=== PATIENT | male | born 1950 | race American Indian/Alaskan Native ===

== ENCOUNTER 2020-11-29 16:54 | Emergency (ER) | payer MEDICARE ==
--- NOTE | 2020-11-29 17:09 | Emergency Department Report ---
ED Neuro Deficit HPI - General Chief Complaint: Neuro Symptoms/Deficit Stated Complaint: CODE STROKE Time Seen by Provider: 11/29/20 16:55 - History of Present Illness Initial Comments: Patient is 70 years old male with history of CVA with right side residual weakness and history of hypertension. Patient brought to the emergency room via EMS from home for evaluation of stroke. EMS stated that patient last time was seen around 11:00 by his at his baseline. She stated that when she returned back she found him unable to use his right upper and lower extremity and significant right facial droop. Upon arrival to the ER patient is alert however he is altered and unable to answer questions appropriately. Patient with significant upper and lower extremity weakness on the right side and right facial droop. Patient im mediately moved to CT for stat CT brain without contrast. Stroke teleneurologist contacted and I spoke with Dr. Jeane Cummings. -: Sudden, This morning, unknown Location: right face, right arm, right leg Presenting Symptoms: Present: Weak/Paralyzed One Side, Facial Droop/Numbness History of same: Yes Place: home Severity: moderate Quality: weak Context: sudden onset - Related Data Home Medications: Home Medications Medication Instructions Recorded Confirmed Last Taken No Known Home Medications [No 11/29/20 11/29/20 Unknown Reported Home Medications] Allergies/Adverse Reactions: Allergies Allergy/AdvReac Type Severity Reaction Status Date / Time No Known Allergies Allergy Unverified 11/29/20 17:29 ED Review of Systems ROS: Stated complaint: CODE STROKE Other details as noted in HPI Comment: All other systems reviewed and negative Constitutional: denies: chills, fever Respiratory: denies: cough, shortness of breath, SOB with exertion, SOB at rest Cardiovascular: denies: chest pain, palpitations, dyspnea on exertion Gastrointestinal: denies: abdominal pain, nausea, vomiting Musculoskeletal: denies: back pain Neurological: weakness. denies: headache, numbness, paresthesias, confusion, abnormal gait ED Past Medical Hx - Medications Home Medications: Home Medications Medication Instructions Recorded Confirmed Last Taken Type No Known Home Medications [No 11/29/20 11/29/20 Unknown History Reported Home Medications] ED Neuro Physical Exam - General General appearance: alert, in no apparent distress Suspected Stroke: Yes - Head Head exam: Present: atraumatic, normocephalic, normal inspection - Eye Eye exam: Present: normal appearance, PERRL - ENT ENT exam: Present: normal exam, normal orophraynx, mucous membranes moist - Neck Neck exam: Present: normal inspection, full ROM. Absent: tenderness, meningismus - Respiratory Respiratory exam: Present: normal lung sounds bilaterally - Cardiovascular Cardiovascular Exam: Present: regular rate, normal rhythm, normal heart sounds - GI/Abdominal GI/Abdominal exam: Present: soft, normal bowel sounds. Absent: distended, tenderness, guarding, rebound, rigid, mass, bruit, pulsatile mass, hernia - Back Exam Back exam: Present: normal inspection, full ROM. Absent: CVA tenderness (R), CVA tenderness (L) - Neurological Exam Neurological exam: Present: alert, altered. Absent: CN II-XII intact - NIHSS Assessment Interval: Baseline 1a. Level of Consciousness: alert/keenly responsive 1b. LOC Questions: answers 1 question correctly 1c. LOC Commands: performs 1 task correctly 2. Best Gaze: forced deviation 3. Visual: partial hemianopia 4. Facial Palsy: unilateral complete paralysis 5b. Motor Arm Right: drift 5a. Motor Arm Left: no drift 6a. Motor Leg Left: no drift 6b. Motor Leg Right: drift 7. Limb Ataxia: absent 8. Sensory: mild/moderate sensory loss 9. Best Language: mild/moderate aphasia 10. Dysarthria: mild/moderate dysarthria 11. Extinction/Inattention: no abnormality Total Score: 13 Stroke Severity: Moderate Stroke - Psychiatric Psychiatric exam: Present: normal mood - Skin Skin exam: Present: warm, intact, normal color ED Course Vital Signs 11/29/20 11/29/20 11/29/20 17:15 17:21 17:23 Temperature 98.2 F 98.2 F Pulse Rate 97 H 93 H Respiratory 13 19 18 Rate Blood Pressure 184/111 Blood Pressure 193/105 [Right] O2 Sat by Pulse 98 97 Oximetry 11/29/20 17:45 Temperature Pulse Rate 93 H Respiratory 22 Rate Blood Pressure 185/108 Blood Pressure [Right] O2 Sat by Pulse 97 Oximetry - Consultations Consultation #1: 11/29/20 18:06 I discussed the patient with Dr. Parry, At [facility] stroke center. He stated that he will review the images and will call me back. - Lab Data Result diagrams: 11/29/20 17:20 05/08/21 17:20 Lab Results 11/29/20 11/29/20 11/29/20 Range/Units 17:20 17:20 17:20 WBC 5.2 (4.5-11.0) K/mm3 RBC 4.63 (3.65-5.03) M/mm3 Hgb 11.5 L (11.8-15.2) gm/dl Hct 36.6 (35.5-45.6) % MCV 79 L (84-94) fl MCH 25 L (28-32) pg MCHC 32 (32-34) % RDW 15.9 H (13.2-15.2) % Plt Count 212 (140-440) K/mm3 Lymph % (Auto) 34.7 (13.4-35.0) % [place] % (Auto) 10.4 H (0.0-7.3) % Eos % (Auto) 2.6 (0.0-4.3) % Baso % (Auto) 1.0 (0.0-1.8) % Lymph # (Auto) 1.8 (1.2-5.4) K/mm3 [place] # (Auto) 0.5 (0.0-0.8) K/mm3 Eos # (Auto) 0.1 (0.0-0.4) K/mm3 Baso # (Auto) 0.1 (0.0-0.1) K/mm3 Seg Neutrophils % 51.3 (40.0-70.0) % Seg Neutrophils # 2.6 (1.8-7.7) K/mm3 PT 13.6 (12.2-14.9) Sec. INR 1.06 (0.87-1.13) APTT 25.2 (24.2-36.6) Sec. Thrombin Time 17.7 (15.1-19.6) Sec. Sodium 134 L (137-145) mmol/L Potassium 3.7 (3.6-5.0) mmol/L Chloride 97.7 L (98-107) mmol/L Carbon Dioxide 26 (22-30) mmol/L Anion Gap 14 mmol/L BUN 8 L (9-20) mg/dL Creatinine 0.7 L (0.8-1.3) mg/dL Estimated GFR > 60 ml/min BUN/Creatinine Ratio 11 % Glucose 268 H (75-100) mg/dL Calcium 8.9 (8.4-10.2) mg/dL Total Bilirubin (0.1-1.2) mg/dL Direct Bilirubin (0-0.2) mg/dL Indirect Bilirubin mg/dL AST (5-40) units/L ALT (7-56) units/L Alkaline Phosphatase (35-129) units/L Total Creatine Kinase 85 (55-170) units/L CK-MB (CK-2) 1.4 (0.0-4.0) ng/mL CK-MB (CK-2) Rel Index 1.6 (0-4) Troponin T < 0.010 (0.00-0.029) ng/mL Total Protein (6.3-8.2) g/dL Albumin (3.9-5) g/dL Albumin/Globulin Ratio % /03/14 Range/Units 17:20 WBC (4.5-11.0) K/mm3 RBC (3.65-5.03) M/mm3 Hgb (11.8-15.2) gm/dl Hct (35.5-45.6) % MCV (84-94) fl MCH (28-32) pg MCHC (32-34) % RDW (13.2-15.2) % Plt Count (140-440) K/mm3 Lymph % (Auto) (13.4-35.0) % [place] % (Auto) (0.0-7.3) % Eos % (Auto) (0.0-4.3) % Baso % (Auto) (0.0-1.8) % Lymph # (Auto) (1.2-5.4) K/mm3 [place] # (Auto) (0.0-0.8) K/mm3 Eos # (Auto) (0.0-0.4) K/mm3 Baso # (Auto) (0.0-0.1) K/mm3 Seg Neutrophils % (40.0-70.0) % Seg Neutrophils # (1.8-7.7) K/mm3 PT (12.2-14.9) Sec. INR (0.87-1.13) APTT (24.2-36.6) Sec. Thrombin Time (15.1-19.6) Sec. Sodium (137-145) mmol/L Potassium (3.6-5.0) mmol/L Chloride (98-107) mmol/L Carbon Dioxide (22-30) mmol/L Anion Gap mmol/L BUN (9-20) mg/dL Creatinine (0.8-1.3) mg/dL Estimated GFR ml/min BUN/Creatinine Ratio % Glucose (75-100) mg/dL Calcium (8.4-10.2) mg/dL Total Bilirubin 0.20 (0.1-1.2) mg/dL Direct Bilirubin < 0.2 (0-0.2) mg/dL Indirect Bilirubin 0.0 mg/dL AST 12 (5-40) units/L ALT 9 (7-56) units/L Alkaline Phosphatase 82 (35-129) units/L Total Creatine Kinase (55-170) units/L CK-MB (CK-2) (0.0-4.0) ng/mL CK-MB (CK-2) Rel Index (0-4) Troponin T (0.00-0.029) ng/mL Total Protein 7.6 (6.3-8.2) g/dL Albumin 3.9 (3.9-5) g/dL Albumin/Globulin Ratio 1.1 % - EKG Data -: EKG Interpreted by Me EKG shows normal: sinus rhythm Rate: normal Interpretation: no acute changes - Radiology Data Radiology results: report reviewed - Medical Decision Making Patient is 70 years old male with history of CVA with right side residual weakness and history of hypertension. Patient brought to the emergency room via EMS from home for evaluation of stroke. EMS stated that patient last time was seen around 11:00 by his at his baseline. She stated that when she returned back she found him unable to use his right upper and lower extremity and significant right facial droop. Upon arrival to the ER patient is alert however he is altered and unable to answer questions appropriately. Patient with significant upper and lower extremity weakness on the right side and right facial droop. Patient immediate ly moved to CT for stat CT brain without contrast. Stroke teleneurologist contacted and I spoke with Dr. Jeane Cummings. Head CTA showed left M1 occlusion. I discussed the patient with Dr. Parry, interventional neurologist at [facility]. He accepted the patient to be transfer for emergency thrombectomy. I discussed the patient with his Florina and informed that patient will be transferred to [place] for further management. Critical Care Time: Yes Critical care time in (mins) excluding proc time.: 45 Critical care attestation.: If time is entered above; I have spent that time in minutes in the direct care of this critically ill patient, excluding procedure time. ED Disposition Clinical Impression: Acute CVA (cerebrovascular accident) Disposition: [id number]/TX-[id number] ANOTHER TYPE HLTHCARE Is pt being admited?: No Condition: Stable Referrals: PRIMARY CARE, [Primary Care Provider] - 3-5 Days
[2020-11-29 17:30] LABS: Basophils # (Auto) 0.1 K/mm3 (0.0-0.1); Eosinophils # (Auto) 0.1 K/mm3 (0.0-0.4); Eosinophils % (Auto) 2.6 % (0.0-4.3); Hematocrit 36.6 % (35.5-45.6); Hemoglobin 11.5 gm/dl (11.8-15.2); Lymphocytes # (Auto) 1.8 K/mm3 (1.2-5.4); Lymphocytes % (Auto) 34.7 % (13.4-35.0); Mean Corpuscular HGB Conc 32 % (32-34); Mean Corpuscular Volume 79 fl (84-94); Monocytes # (Auto) 0.5 K/mm3 (0.0-0.8); Monocytes % (Auto) 10.4 % (0.0-7.3); Platelet Count 212 K/mm3 (140-440); Red Blood Count 4.63 M/mm3 (3.65-5.03); Red Cell Distribution Width 15.9 % (13.2-15.2)
--- NOTE | 2020-11-29 17:31 | Cat Scan Report ---
CT head/brain wo con INDICATION / CLINICAL INFORMATION: 70 years Male; Stroke symptoms. TECHNIQUE: Routine CT head without contrast. All CT scans at this location are performed using CT dos e reduction for ALARA by means of automated exposure control. COMPARISON: None. FINDINGS: BRAIN / INTRACRANIAL CONTENTS: There is extensive cerebral white matter disease most consistent with microvascular angiopathy. There are multiple old infarcts involving basal ganglia and gloria radiata as well as the right cerebellum. There also appears to be old lacunar infarct involving anterior left amilcar. There is mild cerebral atrophy. The ventricular system is correspondingly appropriate in size and con figuration. There is no gross CT evidence of acute intracranial hemorrhage or significant mass effect . ORBITS: No significant abnormality of visualized orbits. SINUSES / MASTOIDS: No significant abnormality in the visualized paranasal sinuses or mastoid air dorian ls. CRANIOCERVICAL JUNCTION: No significant abnormality. ADDITIONAL FINDINGS: The increased signal projected within the intracranial vessels appears fairly sy mmetric and likely are reflect atherosclerotic disease at. However, the findings extend more laterall y within the left MCA and correlation be needed given the unspecified symptoms. IMPRESSION: 1. There is extensive microvascular angiopathy as detailed above without clear CT evidence of acute i ntracranial hemorrhage. The study was specified as code stroke and called emergently to Dr. Graham in the ER at 4:25 PM Nadeen [facility] standard time. Signer Name: Ayden Reddy MD Signed: 11/29/2020 5:27 PM Workstation Name: [id number]
--- NOTE | 2020-11-29 17:37 | Emergency Department Report ---
Blank Doc - Documentation Documentation: [facility] Consult Note # Demographics Consult Type: Acute Stroke Level 2 (4.5-24 hrs) Patient Location: Emergency Room First Name: Chris Last Name: Tavon Date of : 1950 Age: 70 Gender: Male Time of Initial Page (): 11/29/2020, 16:55 Time of Return Call (): 11/29/2020, 16:55 # HPI History: 70yo M presented after being normal at 1100, found later with severe right sided weakness Context/Pre-existing conditions: pre-existing motor deficit, right # Scores Level of Consciousness 1a: [0] = Alert; keenly responsive LOC Questions 1b: [2] = Answers neither correctly LOC Commands 1c: [0] = Performs both tasks correctly Best Gaze 2: [2] = Forced deviation Visual 3: [0] = No visual loss Facial Palsy 4: [2] = Partial paralysis Motor Arm Left 5a: [0] = No drift Motor Arm Right 5b: [1] = Drift Motor Leg Left 6a: [0] = No drift Motor Leg Right 6b: [3] = No effort against gravity Limb Ataxia 7: [0] = Absent Sensory 8: [0] = Normal Best Language 9: [2] = Severe aphasia Dysarthria 10: [1] = [id number] dysarthria Extinction and Inattention 11: [0] = No abnormality NIHSS Total: 13 # PMH-FH-SH Past Medical History: stroke # Data Time Head CT personally read by me (): 11/29/2020, 17:[address]: no bleed, preliminarily reviewed by me, please refer to radiology read for official reading CTA Head: MCA occlusion, preliminarily reviewed by me, please refer to radiology read for official reading, left M1 # Assessment Impression: Ischemic Stroke (Acute) # Plan Thrombolytic/Intervention: IA Intervention Thrombolytic Exclusion: > 4.5 hours Thrombolytic Administration Recommendations: Transfer to facility that is IA capable for consideration of mechanical thrombectomy Other: I have discussed my recommendations with the referring provider Disposition: transfer to IA capable facility # Logistics Telemedicine: Interactive 2 way audio and visual telecommunication technology was utilized during this visit
[2020-11-29 17:43] LABS: INR 1.06 (0.87-1.13)
[2020-11-29 17:44] LABS: Partial Thromboplastin Time 25.2 Sec. (24.2-36.6); Thrombin Time 17.7 Sec. (15.1-19.6)
--- NOTE | 2020-11-29 17:44 | Cat Scan Report ---
CT angio neck INDICATION / CLINICAL INFORMATION: 70 years Male; MAIN. TECHNIQUE: Thin cut axial images obtained through the head during IV bolus contrast administration. S agittal, coronal, and 3 plane MIP reconstructions performed by the technologist. NASCET type criteria used evaluate stenoses. All CT scans at this location are performed using CT dose reduction for ALAR A by means of automated exposure control. COMPARISON: None available. FINDINGS: CAROTID ARTERIES: The beam hardening and motion degrades the image quality at. However, there is no s ignificant stenosis involving carotid arteries by NASCET criteria. The carotid bifurcations are widel y patent at. There is medial course of the carotid arteries which represents developmental.. 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 The left vertebr al artery is clearly dominant without significant focal stenosis. ARCH: There is no significant stenosis involving arch vessels. ADDITIONAL FINDINGS: There are multilevel degenerative changes involving visualized cervical spine. IMPRESSION: There is no significant stenosis involving cervical carotid arteries by NASCET criteria. 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 Signer Name: Ayden Reddy MD Signed: 11/29/2020 5:39 PM Workstation Name: [id number]
[2020-11-29 17:46] LABS: Creatine Kinase MB 1.4 ng/mL (0.0-4.0)
[2020-11-29 17:47] LABS: Blood Urea Nitrogen 8 mg/dL (9-20); Calcium 8.9 mg/dL (8.4-10.2); Hemolysis Index 3
[2020-11-29 17:48] LABS: Alanine Aminotransferase 9 units/L (7-56); Albumin 3.9 g/dL (3.9-5)
--- NOTE | 2020-11-29 17:50 | Cat Scan Report ---
CT angio head INDICATION / CLINICAL INFORMATION: 70 years Male; MAIN. TECHNIQUE: Thin cut axial images obtained through the head during IV bolus contrast administration. S agittal, coronal, and 3 plane MIP reconstructions performed by the technologist. NASCET type criteria used evaluate stenoses. Automated exposure control utilized for radiation reduction purposes. COMPARISON: None available. FINDINGS: INTERNAL CAROTID ARTERIES: There is atherosclerotic calcification involving distal internal carotid a rteries bilaterally without significant stenosis by NASCET criteria. 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 The left vertebral artery is clearly dominant and continues as the basilar artery . There is milder segmental narrowing of the mid basilar artery which may reflect atherosclerotic dis ease. CEREBRAL ARTERIES: There is occlusion of the left MCA approximately 7 mm distal to the origin. Howeve r, there is some collateral of flow within the inferior the insular branches though there is overall decrease contrast opacification compared to the right. There is mild irregularity involving right MCA branches indicative of mild atherosclerotic disease. H owever, there is no significant focal stenosis. The anterior cerebral arteries appear to demonstrate appropriate caliber without significant There is irregularity of the posterior cerebral arteries with significant focal stenosis at the right at T2 junction. ANEURYSM: Findings are most consistent with infundibulum of the posterior communicating arteries bila terally. There is no clear CT evidence of intracranial aneurysm. ADDITIONAL FINDINGS: Remainder of the surrounding soft tissues are grossly normal. IMPRESSION: 1. There is occlusion of the left MCA as detailed above. There is some collateral flow within the lef t insular branches though overall decreased vascularity compared to the right. 2. There is irregularity of the intracranial branches, particularly involving the right P2 segment wi th significant focal narrowing. Is also mild segmental narrowing of the basilar artery and the findin gs may reflect atherosclerotic disease. 3. 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 Signer Name: Ayden Reddy MD Signed: 11/29/2020 5:45 PM Workstation Name: [id number]
[2020-11-29 17:54] LABS: BUN/Creatinine Ratio 11; Bilirubin,Direct < 0.2 mg/dL (0-0.2)
[2020-11-29] MEDS: ASPIRIN 81 MG TAB CHEW PO ONE ×2 (18:33→18:53)
[2020-11-29] MEDS ORDERED: ASPIRIN 300 MG RECT SUPP PR ONE (18:38)
[2020-11-29 19:10] VITALS: BP 188/111
--- NOTE | 2020-12-01 11:12 | Electrocardiograph Report ---
[facility] Test Date: 2020-11-29 Test Time: 17:19:24 Pat Name: CANDACE BARBOSA Department: Room: Gender: M Corporate Trainer: NURSE : 1950 Requested By: GE POMPA Order Number: [id number] Reading MD: Jeronimo Medina Measurements Intervals [place] Rate: 95 P: 63 DE: 176 QRS: 24 QRSD: 81 T: 49 QT: 347 QTc: 438 Interpretive Statements Sinus rhythm Left atrial enlargement No previous ECG available for comparison Electronically Signed On 12-01-2020 11:11:37 EDT by Jeronimo Medina
== END 2020-11-29 19:20 | disposition other institution (70) ==
LOC: ED 16:54
DX: I63.9 Cerebral infarction, unspecified (principal); G81.91 Hemiplegia, unspecified affecting right dominant side; I10 Essential (primary) hypertension
CPT/HCPCS: 36415; 70450; 70496; 70498; 80048; 80076; 82550; 82553; 84484; 85025; 85610; 85670; 85730; 93005; 99291; Q9967